=== PATIENT | male | born 1965 | race Hispanic/Latino ===

== ENCOUNTER → 2019-04-22 | Outpatient (CLI) | payer BC | END | disposition home or self-care (01) | LOC: RAH 10:50 | PROVIDERS: ATTEND Family Medicine | DX: R60.9 Edema, unspecified (principal) | CPT/HCPCS: 93971 ==

== ENCOUNTER → 2019-10-16 | Outpatient (CLI) | payer BC | END | disposition home or self-care (01) | LOC: RAH 08:25 | PROVIDERS: ATTEND Family Medicine | DX: K76.0 Fatty (change of) liver, not elsewhere classified (principal); R16.0 Hepatomegaly, not elsewhere classified; J90 Pleural effusion, not elsewhere classified; R94.5 Abnormal results of liver function studies | CPT/HCPCS: 76700 ==